=== PATIENT | female | born 1985 ===

== ENCOUNTER 2025-02-11 09:02 | Emergency (ER) | payer OTHER ==
[~2025-02-11] VITALS: Ht 154.9 cm; Wt 86.2 kg
[2025-02-11] MEDS ORDERED: KETOROLAC TROMETHAMINE 30 MG VIAL ONE (09:38)
[2025-02-11] MEDS ORDERED: KETOROLAC TROMETHAMINE 30 MG VIAL IV ONE (09:45)
[2025-02-11 10:24] LABS: BASO % 0.9 % (0.1-1.2); EOS # 0.06 (0.04-0.54); EOS % 1.1 % (0.7-7.0); LYMPH # 1.35 (1.18-3.74); LYMPH % 24.5 % (19.3-53.1); MEAN PLATELET VOLUME 9.70 fl (9.4-12.4); MONO # 0.29 (0.24-0.82); MONO % 5.3 % (4.7-12.5); NEUT # 3.75 (1.56-6.13); NEUT % 68.0 % (34.0-71.1); RED CELL DISTRIBUTION WIDTH 12.2 % (11.6-14.4)
[2025-02-11 10:32] LABS: URINE APPEARANCE Clear; URINE BILIRRUBIN Negative (NEGATIVE); URINE BLOOD Negative; URINE COLOR Yellow; URINE GLUCOSE Negative (NEGATIVE); URINE KETONE Trace (NEGATIVE); URINE LEUKOCYTE Negative; URINE NITRATE Negative; URINE PROTEIN Negative (NEGATIVE); URINE UROBILINOGEN 0.2 E.U./dl
[2025-02-11 10:33] LABS: URINE BACTERIA 7.1 uL (0.0-1933)
[2025-02-11 10:51] LABS: ALT/SGPT 19.0 U/L (12-78); AST/SGOT 8.0 U/L (15-37); BILIRUBIN TOTAL 1.26 mg/dL (0.3-1.2); BUN CREA RATIO 12.0 (7.0-25.0); CREATININE SERUM 0.76 mg/dL (0.55-1.02); GFR 84.72; GLOBULINA 4.1 G/DL (2.4-3.5); GLUCOSE FASTING 92.0 mg/dL (65-100); OSMOLALITY SERUM 280.0 MOSM/KG (275-295)
[2025-02-11 11:27] LABS: URINE CAST 0.14 uL (0.0-1.40); URINE EPITHELIAL CELLS 0.4 uL (0.0-38.8); URINE RBC 0.8 uL (0.0-20.8); URINE WBC 0.3 uL (0.0-23.2)
[2025-02-11] MEDS ORDERED: DICLOFENAC SODI75 MG PO (13:40)
[2025-02-11 13:51] VITALS: BP 110/69; O2SAT 100
== END 2025-02-11 13:52 | disposition home or self-care (01) ==
LOC: ER 09:02
PROVIDERS: General Practice
DX: N83.292 Other ovarian cyst, left side (principal)